=== PATIENT | male | born 1940 | race Caucasian/White ===

== ENCOUNTER 2024-11-12 16:09 | Emergency (ER) | payer MEDICARE, OTHER ==
[~2024-11-12] VITALS: Ht 182.9 cm; Wt 82.4 kg
[2024-11-12] MEDS ORDERED: LIPITOR10 MG (16:22)
[2024-11-12] MEDS ORDERED: BAYER CHEWABLE81 MG (16:22)
[2024-11-12] MEDS ORDERED: DONEPEZIL HCL10 MG (16:22)
[2024-11-12] MEDS ORDERED: LISINOPRIL10 MG (16:23)
[2024-11-12] MEDS ORDERED: METOPROLOL SUCC50 MG (16:23)
[2024-11-12] MEDS ORDERED: HYDROCHLOROTHIA25 MG (16:23)
[2024-11-12] MEDS ORDERED: MIRALAX17 GM (16:24)
[2024-11-12] MEDS ORDERED: BUSPIRONE HCL10 MG (16:24)
[2024-11-12] MEDS ORDERED: FLOMAX0.4 MG (16:24)
[2024-11-12] MEDS ORDERED: K-TAB ER20 MEQ (16:24)
[2024-11-12] MEDS ORDERED: QUETIAPINE FUMA50 MG (16:25)
[2024-11-12] MEDS ORDERED: TYLENOL325 MG (16:25)
[2024-11-12] MEDS ORDERED: STOOL SOFT50 MG/5 ML (16:25)
[2024-11-12 17:18] LABS: BASOPHILS 1.1 % (0-2); EOSINOPHILS 1.5 % (0-6); HEMATOCRIT 32.9 % (35.0-50.0); HEMOGLOBIN 11.3 g/dL (12.0-18.0); LYMPHOCYTES 18.9 % (24-44); MCH 30.1 (27-36); MCHC 34.3 g/dl (30-36); MCV 87.7 fl (81-99); NEUTROPHILS 70.5 % (39-80); PLATELET COUNT 218 K/uL (140-440); RBC 3.75 M/ul (4.3-5.7); RDW 16.2 (10.5-15.0)
[2024-11-12 17:36] LABS: ALBUMIN 3.3 g/dL (3.4-5.0); ALBUMIN/GLOBULIN RATIO 1.22 (1.1-2.4); ALCOHOL, MEDICAL <3 ng/dL (<3); ALKALINE PHOSPHATASE 71 U/L (46-116); ALT (SGPT) 12 U/L (14-59); ANION GAP 9.9 (7-21); AST (SGOT) 8 U/L (15-37); BILIRUBIN, TOTAL 0.4 mg/dL (0.2-1.0); BUN/CREATININE RATIO 13.91 (6.0-28.6); CALCIUM 8.9 mg/dL (8.5-10.1); CARBON DIOXIDE 33 mmol/L (21-32); CHLORIDE 104 mmol/L (98-107); CREATININE, SERUM 1.15 mg/dL (0.70-1.30); GLOMERULAR FILTRATION RATE,EST 62 mL/min (>60); POTASSIUM 3.9 mmol/L (3.5-5.1); UREA NITROGEN 16 mg/dL (7-18)
[2024-11-12 17:42] LABS: BILIRUBIN, URINE NEGATIVE (negative); BLOOD/HGB, URINE NEGATIVE (Negative); KETONE, URINE NEGATIVE (Negative); LEUK ESTERASE, URINE NEGATIVE (negative); NITRITE, URINE NEGATIVE (negative)
[2024-11-12 18:10] LABS: AMPHETAMINES, URINE NEGATIVE (NEGATIVE); BARBITURATES, URINE NEGATIVE (NEGATIVE); BENZODIAZEPINE, URINE NEGATIVE (NEGATIVE); BUPRENORPHINE, URINE NEGATIVE (NEGATIVE); COCAINE, URINE NEGATIVE (NEGATIVE); ECSTASY, URINE NEGATIVE (NEGATIVE); FENTANYL, URINE NEGATIVE (NEGATIVE); METHADONE, URINE NEGATIVE (NEGATIVE); OPIATES, URINE NEGATIVE (NEGATIVE); OXYCODONE, URINE NEGATIVE (NEGATIVE); PHENCYCLIDINE, URINE NEGATIVE (NEGATIVE)
[2024-11-12 18:11] LABS: CANNABINOID, URINE NEGATIVE (NEGATIVE)
[2024-11-12] MEDS ORDERED: QUETIAPINE FUMARATE 25 MG TAB PO ONE (18:30)
[2024-11-12 19:20] VITALS: BP 132/60
== END 2024-11-12 19:20 ==
LOC: ED 16:09
PROVIDERS: Emergency Medicine
DX: F03.918 Unspecified dementia, unspecified severity, with other behavioral disturbance (principal); I11.0 Hypertensive heart disease with heart failure; I50.9 Heart failure, unspecified; E78.5 Hyperlipidemia, unspecified; Z79.82 Long term (current) use of aspirin; Z79.899 Other long term (current) drug therapy
CPT/HCPCS: 36415; 71045; 80053; 80307; 81003; 83605; 85025; 99285-25; A9270; G0480

== ENCOUNTER 2024-11-14 13:26 | Emergency (ER) | payer MEDICARE, OTHER ==
[~2024-11-14] VITALS: Ht 182.9 cm; Wt 83.5 kg
[~2024-11-14 13:26] MED LIST: BAYER CHEWABLE81 MG; BUSPIRONE HCL10 MG; DONEPEZIL HCL10 MG; FLOMAX0.4 MG; HYDROCHLOROTHIA25 MG; K-TAB ER20 MEQ; LIPITOR10 MG; LISINOPRIL10 MG; METOPROLOL SUCC50 MG; MIRALAX17 GM; QUETIAPINE FUMA50 MG; STOOL SOFT50 MG/5 ML; TYLENOL325 MG
--- OUTSIDE RECORDS SUMMARY | 2024-11-14 13:33 | XMS ---
PreManage Notification: ALEXANDRIA DURHAM Security Security Management Specialist Events No recent Security Events currently on file CRITERIA MET - [facility] - 2 Visits in 30 Days CARE PROVIDERS There are no care providers on record at this time. Laurie has no Care Guidelines for this patient. Cj VISIT COUNT (12 MO.) 2 DAVONTE Rivero [facility] Linda Morelos (Keily Michaud) TOTAL 3 NOTE: Visits indicate total known visits. ED/C VISIT TRACKING (12 MO.) 11/14/2024 13:27 DAVONTE William [place] TYPE: Emergency 11/12/2024 16:10 [facility] [place] TYPE: Emergency COMPLAINT: - CONFUSION DIAGNOSES: - Heart failure, unspecified - Hyperlipidemia, unspecified - Hypertensive heart disease with heart failure - local intermodal truck driver (current) use of aspirin - Other terminal system operator (current) drug therapy - Unspecified dementia, unspecified severity, with other behavioral disturbance - Violent behavior 08[facility]11[facility]2024 03[facility]06 [facility]Ke[facility]aud[facility]: [facility] DIAGNOSES: - Displaced intertrochanteric fracture of right femur, initial encounter for closed fracture - Fall on same level from slipping, tripping and stumbling without subsequent striking against object, initial encounter - Unspecified atrial flutter - Unspecified dementia, unspecified severity, without behavioral disturbance, psychotic disturbance, mood disturbance, and anxiety - Fall - Hip Pain INPATIENT VISIT TRACKING (12 MO.) 08/11/2024 03:06 [facility]y [facility]aud[facility] TYPE: Surgical Services DIAGNOSES: - Alzheimer's disease, unspecified - Dementia in other diseases classified elsewhere, unspecified severity, without behavioral disturbance, psychotic disturbance, mood disturbance, and anxiety - Displaced intertrochanteric fracture of right femur, initial encounter for closed fracture - Fall on same level from slipping, tripping and stumbling without subsequent striking against object, initial encounter - Unspecified atrial flutter - Unspecified dementia, unspecified severity, without behavioral disturbance, psychotic disturbance, mood disturbance, and anxiety [email or web address]
[2024-11-14 13:55] LABS: BILIRUBIN, URINE NEGATIVE (negative); BLOOD/HGB, URINE NEGATIVE (Negative); KETONE, URINE NEGATIVE (Negative); LEUK ESTERASE, URINE NEGATIVE (negative); NITRITE, URINE NEGATIVE (negative)
[2024-11-14 14:01] LABS: BACTERIA, URINE NONE SEEN /hpf (negative); CASTS, URINE NONE SEEN \\lpf; COLLECTION TYPE, URINE CLEAN CATCH; CRYSTALS, URINE NONE SEEN (0-1+); EPITHELIAL CELLS, URINE SQUAMOUS 1+ /lpf (0-1+); RED BLOOD CELLS, URINE 0-1 /hpf (0-5); REFLEX CULTURE, URINE No (No); WHITE BLOOD CELLS, URINE 0-1 /HPF (0-5)
[2024-11-14] MEDS ORDERED: QUETIAPINE FUMA25 MG PO (16:17)
[2024-11-14] MEDS ORDERED: QUETIAPINE FUMARATE 25 MG TAB PO ONE (16:30)
[2024-11-14 17:31] VITALS: BP 168/72
--- NOTE | 2024-11-16 21:28 | EKG ---
[facility] [address] [place], [place] [address] Signed Sinus bradycardia with sinus arrhythmia with 1st degree AV block Right bundle branch block Left anterior fascicular block Bifascicular block T wave abnormality, consider lateral ischemia Abnormal ECG No previous ECGs available Confirmed by Suzy Mancuso DO ([id number]) on 11/16/2024 9:28:34 PM Electronically Signed By: SUZY MANCUSO DO 11/16/24 2128 PATIENT NAME: ALEXANDRIA DURHAM Electrocardiogram DATE OF : 38 PHYSICIAN: SUZY MANCUSO DO REPORT #: [id number] REPORT IS CONFIDENTIAL AND NOT TO BE RELEASED WITHOUT AUTHORIZATION
== END 2024-11-14 17:31 | disposition home or self-care (01) ==
LOC: ED 13:26
PROVIDERS: Emergency Medicine
DX: F03.911 Unspecified dementia, unspecified severity, with agitation (principal); I10 Essential (primary) hypertension; E78.5 Hyperlipidemia, unspecified; Z79.82 Long term (current) use of aspirin; Z79.899 Other long term (current) drug therapy; Z79.2 Long term (current) use of antibiotics
CPT/HCPCS: 73552; 81001; 93005; 93010; 99284; A9270

== ENCOUNTER 2024-11-21 18:36 | Emergency (ER) | payer MEDICARE ==
[~2024-11-21] VITALS: Ht 182.9 cm; Wt 70.0 kg
[~2024-11-21 18:36] MED LIST changes: -K-TAB ER20 MEQ; +KLOR-CON 1010 MEQ PO; +QUETIAPINE FUM100 MG PO; +QUETIAPINE FUMA25 MG PO; -QUETIAPINE FUMA50 MG
--- OUTSIDE RECORDS SUMMARY | 2024-11-21 18:43 | XMS ---
PreManage Notification: ALEXANDRIA DURHAM Security Cash Management Associate Events No recent Security Events currently on file CRITERIA MET - [facility] - 2 Visits in 30 Days CARE PROVIDERS There are no care providers on record at this time. Laurie has no Care Guidelines for this patient. Cj VISIT COUNT (12 MO.) [address] [facility] Linda Morelos (Keily Michaud) TOTAL 4 NOTE: Visits indicate total known visits. ED/C VISIT TRACKING (12 MO.) 11/21/2024 18:37 DAVONTE William [place] TYPE: Emergency COMPLAINT: - BEHAVIOR CHANGE 11/14/2024 13:27 DAVONTE William [place] TYPE: Emergency DIAGNOSES: - Essential (primary) hypertension - Hyperlipidemia, unspecified - correction (current) use of antibiotics - correction (current) use of aspirin - Other school program director (current) drug therapy - Unspecified dementia, unspecified severity, with agitation - Violent behavior 11/12/2024 16:10 DAVONTE William [place] TYPE: Emergency COMPLAINT: - CONFUSION DIAGNOSES: - Heart failure, unspecified - Hyperlipidemia, unspecified - Hypertensive heart disease with heart failure - correction (current) use of aspirin - Other school program director (current) drug therapy - Unspecified dementia, unspecified severity, with other behavioral disturbance - Violent behavior 08/11/2024 03:06 [facility] Linda HARDING (Keily Michaud) TYPE: Emergency DIAGNOSES: - [...] INPATIENT VISIT TRACKING (12 MO.) 08/11/2024 03:06 [facility]Keily Michaud[facility] TYPE: Surgical Services DIAGNOSES: - Alzheimer's [...] disturbance, psychotic disturbance, mood disturbance, and anxiety [email or web address]
[2024-11-21] MEDS ORDERED: OLANZapine 10 MG TAB PO ONE (19:30)
[2024-11-21] MEDS ORDERED: TAMSULOSIN HCL0.4 MG PO (19:33)
[2024-11-21 20:06] LABS: BASOPHILS 0.6 % (0-2); EOSINOPHILS 2.8 % (0-6); HEMOGLOBIN 11.3 g/dL (12.0-18.0); LYMPHOCYTES 15.2 % (24-44); MCH 29.7 (27-36); MCHC 34.1 g/dl (30-36); NEUTROPHILS 75.4 % (39-80); PLATELET COUNT 190 K/uL (140-440); RDW 16.5 (10.5-15.0)
[2024-11-21 20:22] LABS: ALBUMIN 3.1 g/dL (3.4-5.0); ALBUMIN/GLOBULIN RATIO 1.11 (1.1-2.4); ANION GAP 11.4 (7-21); BILIRUBIN, TOTAL 0.3 mg/dL (0.2-1.0); BUN/CREATININE RATIO 22.6 (6.0-28.6); CALCIUM 8.5 mg/dL (8.5-10.1); CREATININE, SERUM 1.15 mg/dL (0.70-1.30); POTASSIUM 3.4 mmol/L (3.5-5.1); PROTEIN, TOTAL 5.9 g/dL (6.4-8.2)
[2024-11-21] MEDS ORDERED: OXYCODONE HCL 5 MG TAB PO ONE (20:30)
[2024-11-21] MEDS ORDERED: ZYPREXA ZYDIS5 MG PO (20:47)
[2024-11-21] MEDS ORDERED: HALOPERIDOL LACTATE 5 MG/ML VIAL IM ONE (21:30)
[2024-11-21] MEDS ORDERED: diphenhydrAMINE HCL 50 MG/ML VIAL IM ONE (21:30)
[2024-11-21 21:35] VITALS: BP 134/65
== END 2024-11-21 21:37 | disposition home or self-care (01) ==
LOC: ED 18:36
PROVIDERS: Family Medicine
DX: R45.1 Restlessness and agitation (principal); F03.911 Unspecified dementia, unspecified severity, with agitation; E78.5 Hyperlipidemia, unspecified; I10 Essential (primary) hypertension; I48.92 Unspecified atrial flutter; Z79.82 Long term (current) use of aspirin; Z79.899 Other long term (current) drug therapy
CPT/HCPCS: 36415; 51798; 80053; 85025; 96372; 99283-25; A9270; J1200; J1630

== ENCOUNTER 2024-11-24 08:51 | Emergency (ER) | payer MEDICARE, OTHER ==
[~2024-11-24] VITALS: Ht 182.9 cm; Wt 80.0 kg
[~2024-11-24 08:51] MED LIST changes: +TAMSULOSIN HCL0.4 MG PO; -TYLENOL325 MG; +TYLENOL325 MG PO; +ZYPREXA ZYDIS5 MG PO
--- OUTSIDE RECORDS SUMMARY | 2024-11-24 08:53 | XMS ---
PreManage Notification: ALEXANDRIA DURHAM Security Automotive Parts Interpreter Events No recent Security Events currently on file CRITERIA MET - [facility] - 2 Visits in 30 Days CARE PROVIDERS There are no care providers on record at this time. Laurie has no Care Guidelines for this patient. Cj VISIT COUNT (12 MO.) [address] [facility] Linda Morelos (Keily Michaud) TOTAL 5 NOTE: Visits indicate total known visits. ED/[facility] VISIT TRACKING (12 MO.) 11/24/2024 08:52 DAVONTE William [place] TYPE: Emergency COMPLAINT: - STROKE SYMPTOMS 11/21/2024 18:37 DAVONTE William [place] TYPE: Emergency COMPLAINT: - BEHAVIOR CHANGE 11/14/2024 13:27 DAVONTE William [place] TYPE: Emergency DIAGNOSES: - Essential (primary) hypertension - Hyperlipidemia, unspecified - exterminator termite (current) use of antibiotics - detention (current) use of aspirin - Other intermodal customer service (current) drug therapy - Unspecified dementia, unspecified severity, with agitation - Violent behavior 11/12/2024 16:10 DAVONTE William [place] TYPE: Emergency COMPLAINT: - CONFUSION DIAGNOSES: - Heart failure, unspecified - Hyperlipidemia, unspecified - Hypertensive heart disease with heart failure - detention (current) use of aspirin - Other long-term (current) drug therapy - Unspecified dementia, unspecified severity, with other behavioral disturbance - Violent behavior 08/11/2024 03:06 [facility] DIAGNOSES: - Displaced intertrochanteric fracture of right femur, initial encounter for closed fracture - Fall on same level from slipping, tripping and stumbling without subsequent striking against object, initial encounter - Unspecified atrial flutter - Unspecified dementia, unspecified severity, without behavioral disturbance, psychotic disturbance, mood disturbance, and anxiety - Fall - Hip Pain INPATIENT VISIT TRACKING (12 MO.) 08/11/2024 03:06 [facility] TYPE: Surgical Services DIAGNOSES: - Alzheimer's disease, [...] disturbance, psychotic disturbance, mood disturbance, and anxiety [email or web address]
[2024-11-24 09:20] LABS: BASOPHILS 0.7 % (0-2); EOSINOPHILS 2.6 % (0-6); HEMATOCRIT 31.7 % (35.0-50.0); HEMOGLOBIN 10.7 g/dL (12.0-18.0); LYMPHOCYTES 14.7 % (24-44); MCH 29.4 (27-36); MCHC 33.7 g/dl (30-36); MCV 87.1 fl (81-99); MONOCYTES 7.3 % (0-12); NEUTROPHILS 74.7 % (39-80); PLATELET COUNT 171 K/uL (140-440); RBC 3.64 M/ul (4.3-5.7)
[2024-11-24 09:35] LABS: ALBUMIN 2.8 g/dL (3.4-5.0); ALBUMIN/GLOBULIN RATIO 1.08 (1.1-2.4); ANION GAP 7.6 (7-21); BILIRUBIN, TOTAL 0.5 mg/dL (0.2-1.0); BUN/CREATININE RATIO 21.1 (6.0-28.6); CALCIUM 8.5 mg/dL (8.5-10.1); CREATININE, SERUM 1.09 mg/dL (0.70-1.30); POTASSIUM 3.6 mmol/L (3.5-5.1); PROTEIN, TOTAL 5.4 g/dL (6.4-8.2)
[2024-11-24] MEDS ORDERED: ASPIRIN 81 MG CHEW PO ONE (09:45)
[2024-11-24] MEDS ORDERED: CLOPIDOGREL BISULFATE 75 MG TAB PO ONE (09:45)
[2024-11-24] MEDS ORDERED: PLAVIX75 MG PO (11:57)
--- NOTE | 2024-11-24 12:11 | EKG ---
[facility] [address] [facility] [address] [facility] [place] [address] Signed Sinus bradycardia with 1st degree AV block Right bundle branch block Left anterior fascicular block Bifascicular block Abnormal ECG When compared with ECG of 14-NOV-2024 16:01, No significant change was found Confirmed by Mihaela Pickett MD ([id number]) on 11/24/2024 12:11:35 PM Electronically Signed By: MIHAELA PICKETT MD 11/24/24 1211 PATIENT NAME: ALEXANDRIA DURHAM Electrocardiogram DATE OF : 38 PHYSICIAN: MIHAELA PICKETT MD REPORT #: [id number] REPORT IS CONFIDENTIAL AND NOT TO BE RELEASED WITHOUT AUTHORIZATION
[2024-11-24 12:25] VITALS: BP 145/63
== END 2024-11-24 12:15 | disposition home or self-care (01) ==
LOC: ED 08:51
PROVIDERS: Emergency Medicine
DX: G45.9 Transient cerebral ischemic attack, unspecified (principal); R29.707 NIHSS score 7; F03.90 Unspecified dementia, unspecified severity, without behavioral disturbance, psychotic disturbance, mood disturbance, and anxiety; E78.5 Hyperlipidemia, unspecified; I10 Essential (primary) hypertension; I48.92 Unspecified atrial flutter; Z79.899 Other long term (current) drug therapy; Z79.82 Long term (current) use of aspirin
CPT/HCPCS: 36415; 70450; 70496; 70498; 80053; 85025; 93005; 93010; 99285-25; A9270; Q3014; Q9967

== ENCOUNTER 2024-11-26 08:51 | Emergency (ER) | payer MEDICARE, OTHER ==
[~2024-11-26] VITALS: Ht 182.9 cm; Wt 84.8 kg
[~2024-11-26 08:51] MED LIST changes: +PLAVIX75 MG PO
--- OUTSIDE RECORDS SUMMARY | 2024-11-26 08:57 | XMS ---
PreManage Notification: ALEXANDRIA DURHAM Security Scale Manager Events No recent Security Events currently on file CRITERIA MET - 6 ED Visits in 6 Months - [facility] - 2 Visits in 30 Days CARE PROVIDERS There are no care providers on record at this time. Laurie has no Care Guidelines for this patient. Cj VISIT COUNT (12 MO.) 5 DAVONTE Rivero [facility] Linda Morelos (Keily Michaud) TOTAL 6 NOTE: Visits indicate total known visits. ED/C VISIT TRACKING (12 MO.) 11/26/2024 08:51 DAVONTE William [place] TYPE: Emergency COMPLAINT: - STROKE SYMPTOMS 11/24/2024 08:52 DAVONTE William [place] TYPE: Emergency COMPLAINT: - STROKE SYMPTOMS 11/21/2024 18:37 DAVONTE William [place] TYPE: Emergency COMPLAINT: - BEHAVIOR CHANGE DIAGNOSES: - Essential (primary) hypertension - Hyperlipidemia, unspecified - termite helper (current) use of aspirin - Other dedicated intermodal truck driver (current) drug therapy - Restlessness and agitation - Unspecified atrial flutter - Unspecified dementia, unspecified severity, with agitation 11/14/2024 13:27 DAVONTE William [place] TYPE: Emergency DIAGNOSES: - Essential (primary) hypertension - Hyperlipidemia, unspecified - prison (current) use of antibiotics - prison (current) use of aspirin - Other dedicated intermodal truck driver (current) drug therapy - Unspecified dementia, unspecified severity, with agitation - Violent behavior 11/12/2024 16:10 DAVONTE William [place] TYPE: Emergency COMPLAINT: - CONFUSION DIAGNOSES: - Heart failure, unspecified - Hyperlipidemia, unspecified - Hypertensive heart disease with heart failure - termite helper (current) use of aspirin - Other [facility] ([facility] drug therapy - Unspecified dementia, unspecified severity, with other behavioral disturbance - Violent behavior 08/11/2024 03:06 [facility] Keily HARDING (Keily Michaud) TYPE: Emergency DIAGNOSES: - [...] INPATIENT VISIT TRACKING (12 MO.) 08/11/2024 03:06 [facility] ([place]) TYPE: Surgical Services DIAGNOSES: - Alzheimer's disease, [...] disturbance, psychotic disturbance, mood disturbance, and anxiety [email or web address]
[2024-11-26 09:02] LABS: BASOPHILS 0.6 % (0-2); EOSINOPHILS 2.7 % (0-6); HEMATOCRIT 33.7 % (35.0-50.0); HEMOGLOBIN 11.5 g/dL (12.0-18.0); LYMPHOCYTES 18.5 % (24-44); MCH 29.4 (27-36); MCHC 34.1 g/dl (30-36); MCV 86.4 fl (81-99); MONOCYTES 7.4 % (0-12); NEUTROPHILS 70.8 % (39-80); PLATELET COUNT 183 K/uL (140-440); RBC 3.91 M/ul (4.3-5.7); RDW 15.9 (10.5-15.0)
[2024-11-26 09:15] LABS: INR 1.09 (0.80-1.30); PROTIME 13.7 Sec (11.2-14.2)
[2024-11-26 09:17] LABS: PARTIAL THROMBOPLASTIN TIME 27.6 Sec (22.9-41.3)
[2024-11-26 09:18] LABS: ALBUMIN 3.3 g/dL (3.4-5.0); ALBUMIN/GLOBULIN RATIO 1.14 (1.1-2.4); ANION GAP 5.6 (7-21); BILIRUBIN, TOTAL 0.5 mg/dL (0.2-1.0); BUN/CREATININE RATIO 18.03 (6.0-28.6); CALCIUM 8.9 mg/dL (8.5-10.1); CREATININE, SERUM 1.22 mg/dL (0.70-1.30); POTASSIUM 3.6 mmol/L (3.5-5.1); PROTEIN, TOTAL 6.2 g/dL (6.4-8.2)
[2024-11-26] MEDS ORDERED: ROXICODONE15 MG PO (09:59)
[2024-11-26] MEDS ORDERED: HALOPERIDOL LACTATE 5 MG/ML VIAL IM ONE (11:00)
[2024-11-26] MEDS ORDERED: diphenhydrAMINE HCL 50 MG/ML VIAL IM ONE (11:00)
[2024-11-26 12:30] VITALS: BP 152/72
--- NOTE | 2024-11-26 12:48 | EKG ---
[facility] [address] [place] [address] Signed Sinus bradycardia with 1st degree AV block Right bundle branch block Left anterior fascicular block Bifascicular block Abnormal ECG When compared with ECG of 24-NOV-2024 09:42, No significant change was found Confirmed by Dakotah Peraza MD () on 11/26/2024 12:48:25 PM Electronically Signed By: DAKOTAH PERAZA MD 11/26/24 1248 PATIENT NAME: ALEXANDRIA DURHAM Electrocardiogram DATE OF : 38 PHYSICIAN: DAKOTAH PERAZA MD REPORT #: [id number] REPORT IS CONFIDENTIAL AND NOT TO BE RELEASED WITHOUT AUTHORIZATION
== END 2024-11-26 12:30 | disposition home or self-care (01) ==
LOC: ED 08:51
PROVIDERS: Emergency Medicine
DX: R47.81 Slurred speech (principal); R53.1 Weakness; R46.89 Other symptoms and signs involving appearance and behavior; R29.818 Other symptoms and signs involving the nervous system; F03.90 Unspecified dementia, unspecified severity, without behavioral disturbance, psychotic disturbance, mood disturbance, and anxiety; E78.00 Pure hypercholesterolemia, unspecified; I10 Essential (primary) hypertension; I48.92 Unspecified atrial flutter; Z79.01 Long term (current) use of anticoagulants; Z79.82 Long term (current) use of aspirin; Z79.899 Other long term (current) drug therapy
CPT/HCPCS: 36415; 70450; 70496; 70498; 71045; 80053; 85025; 85610; 85730; 93005; 93010; 99285-25; A6590; J1200; J1630

== ENCOUNTER 2024-11-28 11:11 | Emergency (ER) | payer MEDICARE, OTHER ==
[~2024-11-28] VITALS: Ht 182.9 cm; Wt 91.0 kg
[~2024-11-28 11:11] MED LIST changes: +ROXICODONE15 MG PO
--- OUTSIDE RECORDS SUMMARY | 2024-11-28 11:17 | XMS ---
PreManage Notification: ALEXANDRIA DURHAM Security Clerk Television Production Events No recent Security Events currently on file CRITERIA MET - 6 ED Visits in 6 Months - [facility] - 2 Visits in 30 Days CARE PROVIDERS [facility] Current PHONE: Unknown Laurie has no Care Guidelines for this patient. E.Buzz VISIT COUNT (12 MO.) [address] [place] [address] Linda Yun (Keily iMchaud) TOTAL 7 NOTE: Visits indicate total known visits. ED/C VISIT TRACKING (12 MO.) 11/28/2024 11:11 DAVONTE William [place] TYPE: Emergency COMPLAINT: - STROKE SYMPTOMS 11/26/2024 08:51 DAVONTE William [place] TYPE: Emergency COMPLAINT: - STROKE SYMPTOMS DIAGNOSES: - Essential (primary) hypertension - assisted (current) use of anticoagulants - assisted (current) use of aspirin - Other termite exterminator helper (current) drug therapy - Other symptoms and signs involving appearance and behavior - Other symptoms and signs involving the nervous system - Pure hypercholesterolemia, unspecified - Slurred speech - Unspecified atrial flutter - Unspecified dementia, unspecified severity, without behavioral disturbance, psychotic disturbance, mood disturbance, and anxiety - Weakness 11/24/2024 08:52 DAVONTE William [place] TYPE: Emergency COMPLAINT: - STROKE SYMPTOMS 11/21/2024 18:37 DAVONTE William [place] TYPE: Emergency COMPLAINT: - BEHAVIOR CHANGE DIAGNOSES: - Essential (primary) hypertension - Hyperlipidemia, unspecified - termination clerk (current) use of aspirin - Other termite exterminator helper (current) drug therapy - Restlessness and agitation - Unspecified atrial flutter - Unspecified dementia, unspecified severity, with agitation 11/14/2024 13:27 DAVONTE [place] TYPE: Emergency DIAGNOSES: - Essential (primary) hypertension - Hyperlipidemia, unspecified - termination clerk (current) use of antibiotics - termination clerk (current) use of aspirin - Other shelter (current) drug therapy - Unspecified dementia, unspecified severity, with agitation - Violent behavior 11/12/2024 16:10 DAVONTE [place] TYPE: Emergency COMPLAINT: - CONFUSION DIAGNOSES: - Heart failure, unspecified - Hyperlipidemia, unspecified - Hypertensive heart disease with heart failure - assisted (current) use of aspirin - Other termite exterminator helper (current) drug therapy - Unspecified dementia, unspecified severity, with other behavioral disturbance - Violent behavior 08/11/2024 03:06 [facility] Keily HARDING ([place]) TYPE: Emergency DIAGNOSES: - Displaced intertrochanteric fracture of right femur, initial encounter for closed fracture - Fall on same level from slipping, tripping and stumbling without subsequent striking against object, initial encounter - Unspecified atrial flutter - Unspecified dementia, unspecified severity, without behavioral disturbance, psychotic disturbance, mood disturbance, and anxiety - Fall - Hip Pain INPATIENT VISIT TRACKING (12 MO.) 08/11/2024 03:[address] [facility]Keily Michaud[facility] TYPE: Surgical Services DIAGNOSES: [...] disturbance, psychotic disturbance, mood disturbance, and anxiety [email or web address]
[2024-11-28 13:10] VITALS: BP 161/72
== END 2024-11-28 13:10 | disposition home or self-care (01) ==
LOC: ED 11:11
DX: Z71.1 Person with feared health complaint in whom no diagnosis is made (principal); F03.90 Unspecified dementia, unspecified severity, without behavioral disturbance, psychotic disturbance, mood disturbance, and anxiety; I10 Essential (primary) hypertension; E78.00 Pure hypercholesterolemia, unspecified; Z79.82 Long term (current) use of aspirin; Z79.899 Other long term (current) drug therapy
CPT/HCPCS: 99284

== ENCOUNTER 2024-12-30 10:02 | Emergency (ER) | payer MEDICARE, OTHER ==
[~2024-12-30] VITALS: Ht 182.9 cm; Wt 81.1 kg
--- OUTSIDE RECORDS SUMMARY | 2024-12-30 10:09 | XMS ---
PreManage Notification: ALEXANDRIA DURHAM Security Management Coordinator Events No recent Security Events currently on file CRITERIA MET - 6 ED Visits in 6 Months CARE PROVIDERS [facility] Current PHONE: Unknown Laurie has no Care Guidelines for this patient. E.DMendy VISIT COUNT (12 MO.) [facility] [address] [place] [address] Linda Morelos (Keily Michaud) TOTAL 8 NOTE: Visits indicate total known visits. ED/UCC VISIT TRACKING (12 MO.) 12/30/2024 10:02 DAVONTE William [place] TYPE: Emergency COMPLAINT: - ALTERED LOC 11/28/2024 11:11 DAVONTE [place] TYPE: Emergency COMPLAINT: - STROKE SYMPTOMS DIAGNOSES: - Essential (primary) hypertension - [facility] (current) use of aspirin - Other care home (current) drug therapy - Person with feared health complaint in whom no diagnosis is made - Pure hypercholesterolemia, unspecified - Unspecified dementia, unspecified severity, without behavioral disturbance, psychotic disturbance, mood disturbance, and anxiety 11/26/2024 08:51 DAVONTE William [place] TYPE: Emergency COMPLAINT: - STROKE SYMPTOMS DIAGNOSES: - Essential (primary) hypertension - [facility] (current) use of anticoagulants - termite technician (current) use of aspirin - Other care home (current) drug therapy - Other symptoms and [...] SYMPTOMS DIAGNOSES: - Essential (primary) hypertension - Hyperlipidemia, unspecified - termite technician (current) use of aspirin - NIHSS score 7 - Other care home (current) drug therapy - Slurred speech - Transient cerebral ischemic attack, unspecified - Unspecified atrial flutter - Unspecified dementia, unspecified severity, without behavioral disturbance, psychotic disturbance, mood disturbance, and anxiety 11/21/2024 18:37 DAVONTE William [place] TYPE: Emergency COMPLAINT: - BEHAVIOR CHANGE DIAGNOSES: - Essential (primary) hypertension - Hyperlipidemia, unspecified - termite technician (current) use of aspirin - Other terminal gauger supervisor (current) drug therapy - Restlessness and agitation - Unspecified atrial flutter - Unspecified dementia, unspecified severity, with agitation 11/14/2024 13:27 DAVONTE William [place] TYPE: Emergency DIAGNOSES: - Essential (primary) hypertension - Hyperlipidemia, unspecified - termite technician (current) use of antibiotics - [facility] (current) use of aspirin - Other terminal gauger supervisor (current) drug therapy - Unspecified dementia, unspecified severity, with agitation - Violent behavior 11/12/2024 16:10 DAVONTE Jaramillo TYPE: Emergency COMPLAINT: - CONFUSION DIAGNOSES: - Heart failure, unspecified - Hyperlipidemia, unspecified - Hypertensive heart disease with heart failure - termite technician (current) use of aspirin - Other care home (current) drug therapy - Unspecified dementia, unspecified severity, with other behavioral disturbance - Violent behavior 08/11/2024 03:06 [facility]Ke[facility] Michaud[facility] TYPE: Emergency DIAGNOSES: - [...] INPATIENT VISIT TRACKING (12 MO.) 08/11/2024 03:06 [facility] Keily HARDING (Keily Michaud) TYPE: Surgical Services DIAGNOSES: [...] disturbance, psychotic disturbance, mood disturbance, and anxiety [email or web address]
[2024-12-30 11:58] LABS: BASOPHILS 0.5 % (0-2); EOSINOPHILS 0.6 % (0-6); HEMATOCRIT 33.9 % (35.0-50.0); HEMOGLOBIN 11.7 g/dL (12.0-18.0); LYMPHOCYTES 8.8 % (24-44); MCH 29.6 (27-36); MCHC 34.6 g/dl (30-36); MCV 85.4 fl (81-99); MONOCYTES 6.3 % (0-12); NEUTROPHILS 83.8 % (39-80); PLATELET COUNT 224 K/uL (140-440); RBC 3.97 M/ul (4.3-5.7); RDW 14.2 (10.5-15.0)
[2024-12-30 12:08] LABS: BILIRUBIN, URINE NEGATIVE (negative); BLOOD/HGB, URINE NEGATIVE (Negative); KETONE, URINE NEGATIVE (Negative); LEUK ESTERASE, URINE TRACE (negative); NITRITE, URINE NEGATIVE (negative)
[2024-12-30 12:12] LABS: ALBUMIN 3.6 g/dL (3.4-5.0); ALBUMIN/GLOBULIN RATIO 1.2 (1.1-2.4); ANION GAP 7.8 (7-21); BILIRUBIN, TOTAL 0.6 mg/dL (0.2-1.0); BUN/CREATININE RATIO 15.38 (6.0-28.6); CALCIUM 8.7 mg/dL (8.5-10.1); CREATININE, SERUM 1.3 mg/dL (0.70-1.30); POTASSIUM 3.8 mmol/L (3.5-5.1); PROTEIN, TOTAL 6.6 g/dL (6.4-8.2)
[2024-12-30 12:26] LABS: BACTERIA, URINE NONE SEEN /hpf (negative); CASTS, URINE NONE SEEN \\lpf; COLLECTION TYPE, URINE CLEAN CATCH; CRYSTALS, URINE NONE SEEN (0-1+); EPITHELIAL CELLS, URINE 0 /lpf (0-1+); RED BLOOD CELLS, URINE 0-1 /hpf (0-5); REFLEX CULTURE, URINE No (No)
[2024-12-30] MEDS ORDERED: CEPHALEXIN500 M1 PO (13:24)
[2024-12-30] MEDS ORDERED: CEPHALEXIN MONOHYDRATE 500 MG CAP PO ONE (13:30)
[2024-12-30 13:45] VITALS: BP 145/67
== END 2024-12-30 13:45 | disposition home or self-care (01) ==
LOC: ED 10:02
PROVIDERS: Emergency Medicine
DX: N39.0 Urinary tract infection, site not specified (principal); E78.5 Hyperlipidemia, unspecified; I10 Essential (primary) hypertension; Z79.899 Other long term (current) drug therapy; Z79.02 Long term (current) use of antithrombotics/antiplatelets
CPT/HCPCS: 36415; 80053; 81001; 85025; 99285; A9270